=== PATIENT | female | born 1960 | race Two or more races ===

== ENCOUNTER 2018-04-01 08:24 | Emergency (ER) | payer SELFPAY ==
[~2018-04-01] VITALS: Ht 162.6 cm; Wt 72.6 kg
[2018-04-01 08:23] VITALS: BP 146/71
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
[2018-04-01] MEDS ORDERED: Acetaminophen 500mg (ES) tab ORAL ONE ×2 (08:40→08:45)
--- NOTE | 2018-04-01 09:56 | Diagnostic Imaging Report ---
Indication: Neck pain and trauma Technique: Continuous helical imaging of the cervical spine was obtained transaxially from the skull base to the upper thoracic spine. 2-D coronal and sagittal reformatted images were obtained. Automatic Exposure Control was utilized. Total Dose length Product (DLP): 366.[address] Dose Index Volume (CTDIvol): 16.47 mGy Comparison: None Findings: There is no evidence of an acute fracture or malalignment. Atlantoaxial alignment appears normal. Height and configuration of the vertebral bodies and intervertebral discs are within normal limits. There is minimal endplate spur at the C5-6 level. Uncovertebral joints and facets are unremarkable. There is no soft tissue swelling. Impression: No acute injury The CT scanner at [facility] is accredited by the [employer] and the scans are performed using dose optimization techniques as appropriate to a performed exam including Automatic Exposure control.
[2018-04-01] MEDS ORDERED: ACETAMINOPHEN500 M3 ORAL (10:03)
[2018-04-01] MEDS ORDERED: ROBAXIN-750750 MG PO (10:03)
[2018-04-01] MEDS ORDERED: Bacitracin Oint UD TOPIC ONE ×2 (10:05→10:15)
--- NOTE | 2018-04-01 10:17 | Diagnostic Imaging Report ---
Indication: Pain Knee pain/trauma 3 views of the right knee were obtained. Findings: No acute fracture, malalignment, or joint effusion are identified. Joint space is relatively well-maintained. Impression: Negative for acute findings.
[2018-04-01 10:31] VITALS: BP 125/76
== END 2018-04-01 10:38 | disposition home or self-care (01) ==
LOC: EDBD 08:24 → EMR 08:54
DX: S80.211A Abrasion, right knee, initial encounter (principal); V49.9XXA Car occupant (driver) (passenger) injured in unspecified traffic accident, initial encounter; Y92.9 Unspecified place or not applicable; S16.1XXA Strain of muscle, fascia and tendon at neck level, initial encounter; E11.9 Type 2 diabetes mellitus without complications
CPT/HCPCS: 72125; 99284